=== PATIENT | male | born 1960 | race Caucasian/White ===

== ENCOUNTER 2018-03-15 10:55 | Inpatient (IN) | payer OTHER ==
[~2018-03-15] VITALS: Ht 165.1 cm; Wt 82.1 kg
[2018-03-15] VITALS (17 sets, daily range): BP systolic 106–134; BP diastolic 50–87
--- NOTE | ~2018-03-15 | D ---
[address] [address] DISCHARGE SUMMARY Name: DELBERT ARIAS Room: [address] IN M.R.#: [id number] Admission: 03/15/18 Attend Phys: Delbert Baker MD, F Discharge: 03/17/18 Date of : 56 Report #: [id number] THIS REPORT FOR: //name// CC: Delbert Ball DO DATE OF SERVICE: 03/17/2018 FINAL DIAGNOSES: 1. Unstable angina. 2. Status post cardiac catheterization. 3. Coronary artery disease, high-grade stenosis proximal right coronary artery. 4. Acute coronary dissection. 5. Hyperlipidemia. 6. Hypertension. HOSPITAL SUMMARY: The patient is a 57-year-old male who had an outpatient stress test, which was abnormal. He had a diagnostic cardiac catheterization on 03/15/2018. His left system had only mild coronary artery disease. His right coronary artery had a proximal 70-80% stenosis. During his diagnostic cardiac catheterization he suffered an acute coronary dissection of his proximal to mid RCA. There was no loss of flow, but he required a complex coronary intervention. His right femoral artery was accessed for this. The dissection and stenosis were successfully treated. He was monitored for 48 hours following his PCI and had no complex arrhythmias, angina or leg or wrist pain. Discharge creatinine was normal. DISCHARGE MEDICATIONS: Will include the following: Lisinopril 20 mg daily, aspirin 81 mg daily, Brilinta 90 mg p.o. b.i.d., atorvastatin 40 mg daily, increased from his 20 mg dose based on an LDL of 77 on presentation. DISCHARGE INSTRUCTIONS: Follow up in 1 week with EXTRUSION DIE REPAIRER and myself in 4-6 weeks. By: 1118 26Damian Kennedy MD, FACC /nt
[2018-03-15 11:47] LABS: HEMOGLOBIN 15.1 gm/dL (14.0-18.0); MCH 31.2 pg (26.0-34.0); MCHC 34.4 g/dL (28.0-37.0); MCV 90.7 fL (80.0-100.0); MPV 8.2 fl. (7.2-11.1); RBC 4.85 mil/uL (4.50-6.00); RDW-CV 13.2 % (10.5-14.5); WBC 5.6 thou/uL (4.0-11.0)
[2018-03-15 11:56] LABS: ANION GAP 7 mmol/L (7-16); APTT 26.4 Seconds (25.0-31.3); BUN 14 mg/dL (7-18); CHLORIDE 102 mmol/L (98-107); CO2 28 mmol/L (21-32); CREATININE 1.3 mg/dL (0.6-1.3); GLUCOSE 95 mg/dL (70-99); INR 1.1; POTASSIUM 4.3 mmol/L (3.5-5.1); PROTIME 11.4 Seconds (9.20-11.50); SODIUM 137 mmol/L (136-145)
[2018-03-15 12:00] LABS: ALKALINE PHOSPHATASE 153 U/L (46-116); CHOLESTEROL 142 mg/dL (<200); HDL CHOLESTEROL 44 mg/dL (>40); LDL CHOLESTEROL 77 mg/dL (<100); SERUM ASSESSMENT Clear; SGOT 24 U/L (15-37); SGPT 51 U/L (30-65); TC:HDL 3.2 Ratio (Not establshd); TOTAL BILIRUBIN 0.6 mg/dL (<0.1-1.0); TOTAL PROTEIN 7.1 g/dL (6.4-8.2); TRIGLYCERIDE 106 mg/dL (<150); VLDL 21 mg/dL (<40)
[2018-03-15] MEDS ORDERED: AMLODIPINE BESY10 MG PO (12:25)
[2018-03-15] MEDS ORDERED: LIPITOR 20 MG T20 M1 PO (12:26)
[2018-03-15] MEDS ORDERED: LISINOPRIL20 MG PO (12:26)
[2018-03-15] MEDS ORDERED: POTASSIUM20 PO (12:26)
[2018-03-15] MEDS ORDERED: ASPIRIN325 PO (12:27)
[2018-03-15] MEDS ORDERED: FISH OIL 1,001000 M2 PO (12:27)
--- NOTE | 2018-03-15 13:26 | EKG ---
[place] [address] ELECTROCARDIOGRAM REPORT Name: DELBERT ARIAS Room: [facility]#: [id number] Admission: 03/15/18 Attend Phys: Damian Kennedy MD Discharge: Date of : 56 Report #: [id number] THIS REPORT FOR: //name// [facility] Test Date: 2018-03-15 Test Time: 12:49:34 Pat Name: DELBERT ARIAS Department: Room: Gender: [employer] Professor: : 1960 Requested By: Damian Kennedy Order Number: [id number] Reading MD: Delbert Baker Measurements Intervals [place] Rate: 60 P: 17 DC: 145 QRS: 30 QRSD: 83 T: 30 QT: 401 QTc: 401 Interpretive Statements Sinus rhythm Abnormal R-wave progression, early transition No previous ECG available for comparison Electronically Signed On 03-15-2018 13:26:27 CLERICAL COORDINATOR by Delbert Baker [email or web address] <ELECTRONICALLY SIGNED> By: Delbert Baker MD, [facility] 03/15/18 1326 1249 1249 Delbert Baker MD, FACC /EPI
--- NOTE | 2018-03-15 18:45 | NUR ---
PT CAME OVER FROM TECHNOLOGY EDUCATION TEACHER. RIGHT RAD STAT DEFLATED 12 CC PER CARDIOLOGY. RIGHT RADIAL SITE INTACT, BLEEDING <1CM, NO HEMATOMA. RIGHT GROIN SITE, CLEAN, DRY, INTACT. NO HEMATOMA. PT C/O OF NUMBNESS IN RIGHT UPPER THIGH. PT REPORTS NUMBNESS HAS IMPROVED. DR DOWNING IN ROOM AND NOTIFIED. NO ADDITIONAL ORDERS RECEIVED. RIGHT PEDAL PULSE PALPABLE. NO NUMBNESS IN RIGHT FOOT. PT CAME OVER FROM TECHNOLOGY EDUCATION TEACHER ON LEVOPHED. LEVOPHED TITRATED OFF AT 1657. PT TOLERATING LIQUID DIET.
--- NOTE | 2018-03-15 22:32 | NUR ---
RECIEVED REPORT AND ASSUMED CARE OF PT AT 1915. PT AWAKE AND ORIENTED TO PLACE TIME AND SITUATION. PT GIVEN PRN FENTANYL FOR REPORT OF GENERALIZED PAINN ALL OVER BODY. PT REFUSED DRESSING CHANGE. INFORMED PT IT WAS NECESSARY FOR PROPER HEALING. OT STATED HE WOULD ONLY ALLOW DOCTOR TO CHANGE IT TOMORROW. PT CALLING OUT FREQUENTLY REQUESTING PAIN MEDICATION AND REPORTING UNRELIEVED PAIN. DR OCASIO NOTIFIED. RECIEVED ORDER FOR DILAUDED ONE TIME DOSE.
[2018-03-16] VITALS (17 sets, daily range): BP systolic 105–119; BP diastolic 52–63
--- NOTE | 2018-03-16 00:11 | NUR ---
RECIEVED REPORT AND ASSUMED CARE OF PT AT 1915. PT PLEASANT AND COOPERATIVE. PT REPORTS NUMBNESS RESOLVING IN RIGHT LEG. RIGHT RADIAL CATH SIE HAS RADSTAT INPLACE. PRESSURE GRADUALLY DECREASED AND REMOVED. RIGHT GROIN SITE SOFT, NO BLEEDING, SWELLING OR HEMATOMA. DRESSING CLEAN DRY AND INTACT. AT 1930 PT ALLOWED TO SIT UP AND REPOSITION IN BED. PT INFORMED NOT TO GET OUT OF BED UNTIL CLEARED BY CARDIOLOGY. PT EDUCATED REGARDING RESCRIBED BRILENTA TO PREVENT REOCCLUSION OF STENTS PLACE TO OPEN RIGHT CORONARY ARTERY. PT INSTRUCTED TO SPLINT RIGHT GROIN SITE IF COUGHING OR BEARING DOWN. PT INSTRUCTED TO CALL NURSE IMEDIATELY IF SWELLING OR BLEEDING OCCUR AT RIGHT GROIN SITE OR RIGHT RADIAL SITE. EDUCATION GIVEN REGARDING BALOON ANGIOPLASTY AND STENT PLACEMENT TO RESTORE BLOOD FLOW THROUGH OCCLUDED RIGHT CORONARY ARTERY. PT INQUIRED WHEN SENTS WOULD BE REMOVED. IN FORMED PT THAT PLACEMENT OF STENTS WAS PERMANENT. CONSULT CALLED TO DR OCASIO FOR MEDICAL MANAGEMENT. ORDERS RECIEVED. DR DE PAZ CALLED TO CLARIFY IVF FLUIDS. ORDER RECIEVED TO CONTINUE FLUIDS. SECOND IV SITE STARTED IN RIGHT WRIST TO COMPLY WITH PROTOCOL FOR 2 IV SITES AND PROVIDE ROUTE THAT WOULD NOT OCCLUDE WHEN PT BENT ARM. PT STRATED ON STOOL SOFTENER. EDUCATED PT THAT STRAINING TO MOVE BOWELS CAUSES INCREASED PRESSURE THAT MAY RUPTURE ARTERIES AT CATH SITES. PT USING CALL LIGHT APPROPRIATELY. CALLS WHEN URINAL NEEDS EMPTYING OR NEEDS.
--- NOTE | 2018-03-16 05:38 | NUR ---
PT PROGRESSING TOWARD GOALS. NO CHEST PAIN, PRESSURE OR SHORTNESS OF AIR DURING SHIFT. PT'S RIGHT RADIAL SITE CLEAN DRY AND INTACT. NO BLEEDING BRUISING OR HEMATOMA NOTED. PT'S RIGHT GROIN SITE SOFT. NO BLEEDING, BRUISING, SWELLING OR HAEMATOMA. PT MAINTAINED BEDREST THROUGHOUT SHIFT USING URINAL TO VOID. PT'S HEART RATE AND BLOOD PRESSURE WITHIN NORMAL LIMITS. PT'S O2 SAT 97-100%. NO ACUTE CHANGES, ILL CONTINUE TO MONITOR CLOSELY.
[2018-03-16 08:32] LABS: HEMATOCRIT 35.2 % (42.0-52.0); MCH 31.7 pg (26.0-34.0); MCHC 34.8 g/dL (28.0-37.0); MCV 90.9 fL (80.0-100.0); MPV 8.4 fl. (7.2-11.1); RBC 3.87 mil/uL (4.50-6.00); RDW-CV 13.3 % (10.5-14.5); WBC 7.2 thou/uL (4.0-11.0)
[2018-03-16 08:53] LABS: CREATININE 1.1 mg/dL (0.6-1.3)
[2018-03-16 09:00] LABS: HEMOGLOBIN 12.3 gm/dL (14.0-18.0)
--- NOTE | 2018-03-16 11:48 | EKG ---
[place] [address] ELECTROCARDIOGRAM REPORT Name: SILVANO ARIAS Room: [address] ADM IN M.R.#: [id number] Admission: 03/15/18 Attend Phys: Silvano Baker MD, F Discharge: Date of : 56 Report #: [id number] THIS REPORT FOR: //name// [facility] Test Date: 2018-03-15 Test Time: 18:22:04 Pat Name: SILVANO ARIAS Department: Room: [address] Gender: M Staking Technician: TWILA VAZQUEZ : 1960 Requested By: Silvano Baker Order Number: [id number] Reading MD: Damian Kennedy Measurements Intervals [place] Rate: 60 P: 12 IA: 148 QRS: 18 QRSD: 110 T: 35 QT: 402 QTc: 402 Interpretive Statements Sinus rhythm Abnormal R-wave progression, early transition Baseline wander in lead(s) V2 Compared to ECG 03/15/2018 12:49:34 No significant changes Electronically Signed On 03-16-2018 11:48:39 TRAIN RESERVATION CLERK by Damian Kennedy [email or web address] <ELECTRONICALLY SIGNED> By: Damian Kennedy MD, [facility] 03/16/18 [phone] Damian Kennedy MD, [facility] /EPI
--- NOTE | 2018-03-16 13:35 | NUR ---
icu transfer to 232 oriented to and call light denies pain
[2018-03-17] VITALS: BP 102/57
[2018-03-17 04:00] VITALS: BP 101/60
[2018-03-17 04:37] LABS: ABSOLUTE EOSINOPHILS 0.1 thou/uL (0.0-0.7); ABSOLUTE LYMPHOCYTES 1.3 thou/uL (0.8-5.3); ABSOLUTE MONOCYTES 0.5 thou/uL (0.0-1.2); ABSOLUTE NEUTROPHILS 5.7 thou/uL (1.6-8.1); BASOPHILS 0.3 %; EOSINOPHILS 0.7 %; HEMOGLOBIN 13.3 gm/dL (14.0-18.0); LYMPHOCYTES 17.6 %; MCH 31.1 pg (26.0-34.0); MCV 91.7 fL (80.0-100.0); MONOCYTES 6.6 %; MPV 8.2 fl. (7.2-11.1); NUCLEATED RBCS 0 /100WBC; PLATELET COUNT* 239 thou/uL (150-400); POLYS 74.8 %; RBC 4.26 mil/uL (4.50-6.00); RDW-CV 13.4 % (10.5-14.5); WBC 7.6 thou/uL (4.0-11.0)
[2018-03-17 05:12] LABS: CALCIUM 8.6 mg/dL (8.5-10.1); CREATININE 1.2 mg/dL (0.6-1.3); POTASSIUM 3.9 mmol/L (3.5-5.1)
--- NOTE | 2018-03-17 06:53 | NUR ---
ASSUMED CARE OF PT AFTER REPORT AT 1930. PT A&0X4. VSS. PHYSICAL ASSESSMENT COMPLETED AND CHARTED. PT ON RA WITH 96% O2 SAT. PT TRACING SR ON TELE. PT UP ADLIB TO RESTROOM. POST CATH SITE TO RIGHT GROIN C/D/I. MINOR BRUISING NOTED. NO HEMATOMA OR BLEEDING NOTED. DENIES ANY PAIN OR DISCOMFORT. CALL LIGHT WITHIN REACH.
--- NOTE | 2018-03-17 07:20 | NUR ---
CHANGE OF SHIFT BEDSIDE REPORT GIVEN PATIENT SEN AT BEDSIDE, IN BED ASSUMED PATIENT CARE
[2018-03-17 08:00] VITALS: BP 103/63
[2018-03-17 11:40] VITALS: BP 117/65
[2018-03-17] MEDS ORDERED: BRILINTA90 MG PO (11:42)
[2018-03-17] MEDS ORDERED: NITROGLYCERIN0.4 MG SUBLING (11:58)
--- NOTE | 2018-03-17 12:50 | NUR ---
PATIENT DISCHARGED TO HOME ALL DC INSTRUCTIONS GIVEN, ACKNOWLEDGED, SIGNED COPIES GIVEN IV AND HEART MONITOR REMOVED PERSOANAL BELONGINGS RETURNED ESCORTED OUT AMBULATORY GOOD CONDITION TO WAITING CAR
--- NOTE | 2018-03-21 11:04 | CARD ---
[address] [address] CARDIAC CATH REPORT Name: SILVANO ARIAS Room: [address] IN M.R.#: [id number] Admission: 03/15/18 Attend Phys: Silvano Baker MD, F Discharge: 03/17/18 Date of : 56 Report #: [id number] THIS REPORT FOR: //name// APPROVED REPORT Study performed: 03/15/2018 13:06:02 Patient Details Patient Status: Out-Patient Room #: The patient is a 57 year-old male Event Personnel Rebecca Hamilton Monitor, Maria Guadalupe Hamilton RTR Scrub, Kathia Valadez RN RN, Damian Kennedy Brass Finisher, Silvano Baker Brass Finisher Procedures Performed Art Access - R femoral artery* , Coronary Angiography and Percutaneous Coronary Intervention Indication Positive stress test, Chest pain Admission/Lab Medications/Medications given during procedure Heparin Unfract. Procedure Narrative The patient was brought electively to the Cardiac Catheterization Laboratory and was prepped and draped in a sterile manner. The right wrist was infiltrated with 1% Lidocaine subcutaneous anesthesia. A Glidesheath [id number] sheath was inserted into the right radial artery. Coronary angiography was performed using coronary diagnostic catheters. The right coronary system was accessed and visualized with a JR4 5fr catheter. The left coronary system was accessed and visualized with a Diagnostic catheter. Left ventricular/Aortic Valve gradient assessed via catheter pullback. Closure device was deployed with a 6 Fr vascband. There was no hematoma. Diagnostic arteriogram of the rca revealed the development of a proximal discestion most likely caused by the catheter. The patient developed chest pain and hypotension. A 6 venezuelan sheath was placed in the right femoral artery. An angioseal was placed at the end of the procedure. Intraoperative Conscious Sedation Sedation start time: 1:41pm Case end Time: [place] [address] CARDIAC CATH REPORT Name: SILVANO ARIAS Room: [address] IN ..#: [id number] Admission: 03/15/18 Attend Phys: Silvano Baker MD, F Discharge: 03/17/18 Date of : 56 Report #: [id number] Fentanyl 50 mcg Dose: 1911 1911 mGy Contrast Type and Amount: Visipaque 380 ml Coronary Angiography The patient's coronary anatomy is right dominant. 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 Ejection Fraction was within normal limits based off patient's Echocardiogram. During coronary evalution of RCA , the patient developed an acute coronary dissection of the proximal to mid RCA. No loss of flow occurred. Hemodynamics The aortic pressure is 103/61 mmHg with a mean of 80 mmHg. The left ventricular pressure is 114/15 mmHg with a mean of mmHg. The left ventricular end diastolic pressure is 25 mmHg. There was no gradient across the aortic valve upon pullback. Pullback from the left ventricle to the aorta revealed no gradient across the aortic valve. PCI Technique Lesion Anticoagulation was achieved with Heparin. Percutaneous coronary intervention was performed on the proximal right coronary artery. The lesion stenosis prior to intervention was 80% with CAREN 3 flow. A 6 venezuelan jr4 Guide Catheter was used to engage the rca ostium. A bmw Interventional Guidewire was used to cross the lesion. BALLOON DILATION A Balloon catheter Trek RX 2.5 X 12 was inserted and inflated up to 8.00atm for 12seconds. Repeat [place] [address] CARDIAC CATH REPORT Name: SILVANO ARIAS Room: [address]#: [id number] Admission: 03/15/18 Attend Phys: Silvano Baker MD, F Discharge: 03/17/18 Date of : 56 Report #: [id number] post-dilatation results: 80% stenosis with residual dissection. Additional Inflation: 16.00atm for 16seconds. Additional Inflation: 8.00atm for 10seconds. STENT DEPLOYMENT A drug-eluting stent Rene RX Stent 2.5X22mm was inserted and inflated up to 8.00atm for 12seconds. Repeat angiography revealed the following post-stent deployment results: 0% stenosis. Additional Inflation: 8.00atm for 10seconds. Additional Inflation: 18.00atm for 19seconds. A second drug eluting stent was placed in the rca ostium. Final angiography reveals 0 % stenosis with CAREN 3 flow. COMMENTS No residual dissection was noted following placement of 2 drug eluting stents in the proximal rca STENT DEPLOYMENT A stent Rene RX Stent 3.0X15mm was inserted and inflated up to 16.00atm for 16seconds. Additional Inflation: 16.00atm for 16seconds. Additional Inflation: 12.00atm for 11seconds. Conclusion 1. High grade coronary disease involving proximal to mid RCA 2. Development of acute coronary dissection 3. successful placement of 2 drug eluting stents in the proximal rca with no residual stenosis nor dissection Recommendations Cardiac Rehabilitation Referral Aggressive Medical Therapy Medications Administered Ticagrelor Diagnostic Cath Approved by: Damian Kennedy MD Date/Time: <ELECTRONICALLY SIGNED> By: Silvano Baker MD, FACC 03/21/18 1104 1104 [id number] Baker MD, FAC /INF
== END 2018-03-17 12:50 | disposition home or self-care (01) | DRG 246 ==
LOC: M.CL 10:55 → M.ICU 14:41 → M.TBA-CV 14:41 → M.ICU 15:59 → M.2W 03-16 13:06
PROVIDERS: Internal Medicine; Internal Medicine Cardiovascular Disease; ADMIT Internal Medicine Cardiovascular Disease
PROC: 4A023N7 Measurement of Cardiac Sampling and Pressure, Left Heart, Percutaneous Approach (ICD-10-PCS; principal; 2018-03-15)
PROC: B2111ZZ Fluoroscopy of Multiple Coronary Arteries using Low Osmolar Contrast (ICD-10-PCS; principal; 2018-03-15)
PROC: 027035Z Dilation of Coronary Artery, One Artery with Two Drug-eluting Intraluminal Devices, Percutaneous Approach (ICD-10-PCS; principal; 2018-03-15)
DX: I25.110 Atherosclerotic heart disease of native coronary artery with unstable angina pectoris (principal); I25.42 Coronary artery dissection; E78.5 Hyperlipidemia, unspecified; I10 Essential (primary) hypertension; Z79.899 Other long term (current) drug therapy; Z79.82 Long term (current) use of aspirin; Z86.73 Personal history of transient ischemic attack (TIA), and cerebral infarction without residual deficits